=== PATIENT | female | born 1975 | race Caucasian/White ===

== ENCOUNTER 2024-10-26 02:18 | Emergency (ER) | payer BC | END 2024-10-26 03:38 | disposition home or self-care (01) | LOC: BURERS 02:18 | DX: M25.562 Pain in left knee (principal) | CPT/HCPCS: 96372; 99283; J1885 ==

== ENCOUNTER 2025-03-14 19:35 | Emergency (ER) | payer BC | END 2025-03-14 20:16 | disposition home or self-care (01) | LOC: BURERS 19:35 | DX: I10 Essential (primary) hypertension (principal); E66.01 Morbid (severe) obesity due to excess calories | CPT/HCPCS: 93005; 99283 ==